=== PATIENT | female | born 1995 | race Asian ===

== ENCOUNTER → 2019-06-30 09:56 | Outpatient (CLI) | payer OTHER, SELFPAY ==
[2019-06-30 10:55] LABS: Hematocrit 43.9 % (36-46); Hemoglobin 14.9 g/dL (12.0-16.0); Mean Corpuscular Hemoglobin 30.3 PG (26-34); Mean Corpuscular Volume 89.1 fL (80-100); Platelet Count 217 X10^3/uL (150-400); Red Blood Cell Count 4.92 X10^6/uL (4.0-5.2); Red Cell Distribution Width 13.4 % (11.6-14.8); White Blood Cell Count 6.9 X10^3/uL (4.5-11.0)
[2019-06-30 11:44] LABS: Neutrophils Absolute Manual 5382 /uL (3000-5900); Total Cells Counted 100
[2019-06-30 11:45] LABS: RBC Morphology Normal Morphology
[2019-06-30 11:49] LABS: Alanine Aminotransferase 15 IU/L (<35); Albumin 4.8 g/dL (3.5-5.0); Albumin Globulin Ratio 1.5 (1.0-2.8); Alkaline Phosphatase 72 U/L (38-126); Aspartate Aminotransferase 24 IU/L (14-36); BUN Creatinine Ratio 11.3 (6-22); Bilirubin Total 0.6 mg/dL (0.2-1.3); Blood Urea Nitrogen 9 mg/dL (7-17); Calcium 10.1 mg/dL (8.4-10.2); Carbon Dioxide 27 mmol/L (22-32); Chloride 106 mmol/L (98-107); Estimated Glomerular Filt Rate > 60.0 mL/min (>60); Globulin 3.3 g/dL (1.7-4.1); Glucose 92 mg/dL (70-100); HEMOLYSIS < 15 (0-50); Potassium 4.1 mmol/L (3.4-5.1); Sodium 142 mmol/L (137-145); Total Protein 8.1 g/dL (6.3-8.2)
[2019-06-30 12:09] LABS: Free T3, Triiodothyronine Free 4.15 pg/mL (2.77-5.27); Free T4, Direct Thyroxine 1.31 ng/dL (0.78-2.19)
[2019-06-30 12:22] LABS: Thyroid Stimulating Hormone 1.18 uIU/mL (0.47-4.68)
== END ==
PROVIDERS: PCP Nurse Practitioner; Visit Provider Nurse Practitioner
DX: F41.8 Other specified anxiety disorders (principal); Z00.00 Encounter for general adult medical examination without abnormal findings
CPT/HCPCS: 36415; 80053; 84439; 84443; 84481; 85025

== ENCOUNTER → 2020-11-27 08:29 | Outpatient (CLI) | payer OTHER, SELFPAY ==
[2020-11-27 09:58] LABS: Add Manual Diff / Slide Review NO; Basophils Absolute Auto 100 /uL (0-100); Basophils Percent Auto 0.8 % (0-2); Eosinophils Absolute Auto 100 /uL (0-450); Eosinophils Percent Auto 0.9 % (2-4); Hematocrit 43.6 % (36-46); Hemoglobin 14.7 g/dL (12.0-16.0); Lymphocytes Absolute Auto 2200 /uL (1100-4500); Lymphocytes Percent Auto 31.5 % (25-40); Mean Corpuscular HGB Conc 33.8 % (30-36); Mean Corpuscular Hemoglobin 30.3 PG (26-34); Mean Corpuscular Volume 89.5 fL (80-100); Monocytes Absolute Auto 500 /uL (0-900); Monocytes Percent Auto 7.6 % (3-14); Neutrophils Absolute Auto 4100 /uL (1500-7000); Neutrophils Percent Auto 59.2 % (50-75); Platelet Count 199 X10^3/uL (150-400); Red Blood Cell Count 4.87 X10^6/uL (4.0-5.2); Red Cell Distribution Width 13.6 % (11.6-14.8)
[2020-11-27 10:16] LABS: Alanine Aminotransferase 14 IU/L (<35); Albumin 4.3 g/dL (3.5-5.0); Albumin Globulin Ratio 1.3 (1.0-2.8); Alkaline Phosphatase 63 U/L (38-126); Aspartate Aminotransferase 24 IU/L (14-36); BUN Creatinine Ratio 13.6 (6-22); Bilirubin Total 0.8 mg/dL (0.2-1.3); Blood Urea Nitrogen 11 mg/dL (7-17); Calcium 10.1 mg/dL (8.4-10.2); Carbon Dioxide 24 mmol/L (22-32); Chloride 104 mmol/L (98-107); Estimated Glomerular Filt Rate > 60.0 mL/min (>60); Globulin 3.3 g/dL (1.7-4.1); Glucose 85 mg/dL (70-100); HEMOLYSIS < 15 (0-50); Potassium 4.3 mmol/L (3.4-5.1); Sodium 137 mmol/L (137-145); Total Protein 7.6 g/dL (6.3-8.2)
[2020-11-28 03:53] LABS: Free T3, Triiodothyronine Free 4.73 pg/mL (2.77-5.27); Free T4, Direct Thyroxine 1.59 ng/dL (0.78-2.19)
[2020-11-28 04:06] LABS: Thyroid Stimulating Hormone 1.47 uIU/mL (0.47-4.68)
== END ==
PROVIDERS: PCP Nurse Practitioner; Referring Provider Nurse Practitioner; Visit Provider Nurse Practitioner
DX: Z00.00 Encounter for general adult medical examination without abnormal findings (principal); F41.8 Other specified anxiety disorders; G47.00 Insomnia, unspecified
CPT/HCPCS: 36415; 80053; 84439; 84443; 84481; 85025

== ENCOUNTER 2021-11-17 12:34 | Emergency (ER) | payer OTHER, SELFPAY ==
[2021-11-17 12:57] VITALS: BP 131/70; PULSE 70; RESP 16; TEMP 36.6; O2SAT 99; BMI 20.3
--- NOTE | 2021-11-17 14:14 | PC.NURSE ---
Pt called from waiting area without answer.
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
== END 2021-11-17 15:30 | disposition home or self-care (01) ==
PROVIDERS: Emergency Provider Nurse Practitioner Critical Care Medicine
DX: S29.012A Strain of muscle and tendon of back wall of thorax, initial encounter (principal); M62.830 Muscle spasm of back; M54.50 Low back pain, unspecified; V49.50XA Passenger injured in collision with unspecified motor vehicles in traffic accident, initial encounter
CPT/HCPCS: 99281

== ENCOUNTER → 2022-04-20 09:40 | Outpatient (CLI) | payer OTHER, MEDICAID, SELFPAY ==
[2022-04-20 10:28] LABS: Hematocrit 42.1 % (36-46); Mean Corpuscular HGB Conc 33.3 % (30-36); Mean Corpuscular Hemoglobin 29.9 PG (26-34); Mean Corpuscular Volume 89.8 fL (80-100); Platelet Count 211 X10^3/uL (150-400); Red Blood Cell Count 4.69 X10^6/uL (4.0-5.2); White Blood Cell Count 6.7 X10^3/uL (4.5-11.0)
[2022-04-20 11:00] LABS: Alanine Aminotransferase 14 IU/L (<35); Albumin 4.2 g/dL (3.5-5.0); Albumin Globulin Ratio 1.2 (1.0-2.8); Alkaline Phosphatase 61 U/L (38-126); Aspartate Aminotransferase 26 IU/L (14-36); BUN Creatinine Ratio 12.5 (6-22); Bilirubin Total 0.6 mg/dL (0.2-1.3); Blood Urea Nitrogen 10 mg/dL (7-17); Calcium 9.1 mg/dL (8.4-10.2); Carbon Dioxide 27 mmol/L (22-32); Chloride 104 mmol/L (98-107); Estimated Glomerular Filt Rate > 60 mL/min (>60); Globulin 3.6 g/dL (1.7-4.1); Glucose 91 mg/dL (70-100); HEMOLYSIS < 15 (0-50); Potassium 3.9 mmol/L (3.4-5.1); Sodium 140 mmol/L (137-145); Total Protein 7.8 g/dL (6.3-8.2)
[2022-04-20 11:18] LABS: Free T3, Triiodothyronine Free 4.13 pg/mL (2.77-5.27); Free T4, Direct Thyroxine 1.19 ng/dL (0.78-2.19)
== END ==
PROVIDERS: Referring Provider Nurse Practitioner; Visit Provider Nurse Practitioner
DX: Z00.00 Encounter for general adult medical examination without abnormal findings (principal)
CPT/HCPCS: 36415; 80053; 84439; 84443; 84481; 85027

== ENCOUNTER → 2022-09-22 15:22 | Outpatient (CLI) | payer OTHER, SELFPAY ==
[2022-09-22 16:51] LABS: Add Manual Diff / Slide Review NO; Basophils Absolute Auto 0 /uL (0-100); Basophils Percent Auto 0.5 % (0-2); Eosinophils Absolute Auto 0 /uL (0-450); Eosinophils Percent Auto 0.5 % (2-4); Hematocrit 40.5 % (36-46); Hemoglobin 13.8 g/dL (12.0-16.0); Lymphocytes Absolute Auto 1800 /uL (1100-4500); Lymphocytes Percent Auto 25.2 % (25-40); Mean Corpuscular Hemoglobin 30.2 PG (26-34); Mean Corpuscular Volume 88.7 fL (80-100); Monocytes Absolute Auto 500 /uL (0-900); Monocytes Percent Auto 6.3 % (3-14); Neutrophils Absolute Auto 4800 /uL (1500-7000); Neutrophils Percent Auto 67.5 % (50-75); Platelet Count 206 X10^3/uL (150-400); Red Blood Cell Count 4.56 X10^6/uL (4.0-5.2); Red Cell Distribution Width 13.4 % (11.6-14.8); White Blood Cell Count 7.2 X10^3/uL (4.5-11.0)
[2022-09-22 17:29] LABS: Alanine Aminotransferase 18 IU/L (<35); Albumin 4.1 g/dL (3.5-5.0); Albumin Globulin Ratio 1.2 (1.0-2.8); Alkaline Phosphatase 66 U/L (38-126); Aspartate Aminotransferase 26 IU/L (14-36); BUN Creatinine Ratio 13.2 (6-22); Bilirubin Total 0.5 mg/dL (0.2-1.3); Blood Urea Nitrogen 9 mg/dL (7-17); Calcium 8.9 mg/dL (8.4-10.2); Carbon Dioxide 24 mmol/L (22-32); Chloride 103 mmol/L (98-107); Cholesterol 185 mg/dL (140-199); Estimated Glomerular Filt Rate > 60 mL/min (>60); Globulin 3.5 g/dL (1.7-4.1); Glucose 84 mg/dL (70-100); HDL Cholesterol 84 mg/dL (40-60); HEMOLYSIS < 15 (0-50); LDL Cholesterol Calculated 88 mg/dL (<100); Potassium 3.7 mmol/L (3.4-5.1); Sodium 136 mmol/L (137-145); Total Protein 7.6 g/dL (6.3-8.2); Triglycerides 64 mg/dL (35-150)
[2022-09-22 17:46] LABS: Free T3, Triiodothyronine Free 4.28 pg/mL (2.77-5.27); Free T4, Direct Thyroxine 1.24 ng/dL (0.78-2.19)
[2022-09-22 18:00] LABS: Thyroid Stimulating Hormone 0.672 uIU/mL (0.47-4.68)
[2022-09-24 17:08] LABS: HIV 1 & 2 Ab/Ag 4th Gen Combo NEGATIVE (NEGATIVE); Hep C Virus Ab w/Reflex Quant NEGATIVE s/c (NEGATIVE)
== END ==
PROVIDERS: PCP Nurse Practitioner; Referring Provider Nurse Practitioner; Visit Provider Nurse Practitioner
DX: Z00.00 Encounter for general adult medical examination without abnormal findings; Z11.4 Encounter for screening for human immunodeficiency virus [HIV]; Z11.59 Encounter for screening for other viral diseases; Z11.8 Encounter for screening for other infectious and parasitic diseases
CPT/HCPCS: 36415; 80053; 80061; 84439; 84443; 84481; 85025; 86803; 87389

== ENCOUNTER → 2022-09-23 10:05 | Outpatient (CLI) | payer OTHER, SELFPAY ==
[2022-09-23 13:45] LABS: Urine N gonorrhoeae NOT DETECTED
[2022-09-23 13:51] LABS: Urine Chlamydia NOT DETECTED
== END ==
PROVIDERS: PCP Nurse Practitioner; Referring Provider Nurse Practitioner; Visit Provider Nurse Practitioner
DX: Z11.4 Encounter for screening for human immunodeficiency virus [HIV] (principal); Z11.59 Encounter for screening for other viral diseases; Z11.8 Encounter for screening for other infectious and parasitic diseases
CPT/HCPCS: 36415; 87491; 87591

== ENCOUNTER → 2023-04-15 14:45 | Outpatient (CLI) | payer OTHER, SELFPAY | PROVIDERS: PCP Nurse Practitioner; Referring Provider Family Medicine; Visit Provider Family Medicine | DX: Z23 Encounter for immunization (principal) | CPT/HCPCS: 90471; 90686 ==

== ENCOUNTER → 2023-10-12 07:04 | Outpatient (CLI) | payer OTHER, SELFPAY ==
[2023-10-12 07:40] LABS: Add Manual Diff / Slide Review NO; Basophils Absolute Auto 0 /uL (0-100); Basophils Percent Auto 0.7 % (0-2); Eosinophils Absolute Auto 100 /uL (0-450); Eosinophils Percent Auto 1.5 % (2-4); Hematocrit 39.6 % (36-46); Hemoglobin 13.3 g/dL (12.0-16.0); Lymphocytes Absolute Auto 1900 /uL (1100-4500); Lymphocytes Percent Auto 31.1 % (25-40); Mean Corpuscular HGB Conc 33.6 % (30-36); Mean Corpuscular Hemoglobin 29.9 PG (26-34); Monocytes Absolute Auto 500 /uL (0-900); Neutrophils Absolute Auto 3700 /uL (1500-7000); Neutrophils Percent Auto 58.7 % (50-75); Platelet Count 190 X10^3/uL (150-400); Red Blood Cell Count 4.44 X10^6/uL (4.0-5.2); Red Cell Distribution Width 12.9 % (11.6-14.8); White Blood Cell Count 6.3 X10^3/uL (4.5-11.0)
[2023-10-12 08:14] LABS: Alanine Aminotransferase 18 IU/L (<35); Albumin 3.8 g/dL (3.5-5.0); Albumin Globulin Ratio 1.1 (1.0-2.8); Alkaline Phosphatase 63 U/L (38-126); Aspartate Aminotransferase 25 IU/L (14-36); BUN Creatinine Ratio 16.2 (6-22); Bilirubin Total 0.6 mg/dL (0.2-1.3); Blood Urea Nitrogen 11 mg/dL (7-17); Calcium 9.3 mg/dL (8.4-10.2); Carbon Dioxide 25 mmol/L (22-32); Chloride 107 mmol/L (98-107); Estimated Glomerular Filt Rate > 60 mL/min (>60); Globulin 3.4 g/dL (1.7-4.1); Glucose 85 mg/dL (70-100); HEMOLYSIS < 15 (0-50); Potassium 4.1 mmol/L (3.4-5.1); Sodium 134 mmol/L (137-145); Total Protein 7.2 g/dL (6.3-8.2)
[2023-10-12 09:14] LABS: Hepatitis B Surface Antigen NEGATIVE s/c (NEGATIVE)
[2023-10-12 09:27] LABS: HIV 1 & 2 Ab/Ag 4th Gen Combo NEGATIVE (NEGATIVE); Hep C Virus Ab w/Reflex Quant NEGATIVE s/c (NEGATIVE)
[2023-10-12 11:28] LABS: Creatinine Urine Random 47.1 mg/dL
[2023-10-12 11:31] LABS: Microalbumin Urine Random < 0.6 mg/dL (0-1.6)
[2023-10-12 12:36] LABS: Urine N gonorrhoeae NOT DETECTED
[2023-10-12 13:02] LABS: Urine Chlamydia NOT DETECTED
[2023-10-13 03:10] LABS: HSV 2 IGG AB < 0.91 index (0.00-0.90)
[2023-10-13 09:21] LABS: RPR Screen Non Reactive (Non Reactive)
[2023-10-15 05:22] LABS: Free T4, Direct Thyroxine 1.43 ng/dL (0.78-2.19)
== END ==
LOC: LAB 07:05
PROVIDERS: PCP Nurse Practitioner; Referring Provider Nurse Practitioner; Visit Provider Nurse Practitioner
DX: Z00.00 Encounter for general adult medical examination without abnormal findings (principal); Z11.3 Encounter for screening for infections with a predominantly sexual mode of transmission
CPT/HCPCS: 36415; 80053; 82043; 82570; 84439; 84443; 84481; 85025; 86592; 86695; 86696; 86803; 87340; 87389; 87491; 87591

== ENCOUNTER 2024-11-25 13:37 | Emergency (ER) | payer OTHER, SELFPAY ==
[2024-11-25 14:08] VITALS: BP 125/60; PULSE 87; RESP 18; TEMP 37.1; O2SAT 97; BMI 21.2
--- NOTE | 2024-11-25 14:13 | DI.RAD.S_ITS ---
PROCEDURE: XR TOE RT MIN 2V INDICATIONS: toe pain after trip TECHNIQUE: AP view of the foot and two views of the 4th toe acquired. COMPARISON: None. FINDINGS: Bones: Mildly displaced fracture is seen at the midshaft of the 4th proximal phalanx with mild lateral angulation. No additional fracture is seen. Soft tissues: No suspicious soft tissue densities. IMPRESSION: Mildly angulated fracture of the 4th proximal phalangeal shaft. Approved by: Jose Smith M.D. on 11/25/2024 at 13:53
--- NOTE | 2024-11-25 15:41 | ED_ITS ---
HPI - Extremity Injury (Lower) <Breann Carter PA-C - Last Filed: 11/25/24 17:58> General Chief Complaint: Extremity Injury, Lower Stated Complaint: R Foot Toe Injury Time Seen by Provider: 11/25/24 15:35 Source: patient Mode of arrival: Wheelchair History of Present Illness HPI Narrative: Ms. De La Rosa is a very pleasant 29-year-old female who presents to the emergency department for right 4th toe pain and deformity after an injury that occurred prior to arrival. Patient reports she got up quickly and tripped/stubbed her foot on an Ottoman causing her right 4th toe to point laterally. Her pain is localized to the right 4th toe, no midfoot pain, no numbness tingling weakness open wounds or deformities. No nail bed involvement. No medications prior to arrival, she is icing the toe. She does have to ride a bike daily, she would like to reduce costs as much as possible here in the ER. Related Data Previous Rx's Medication Instructions Recorded fluoxetine 10 mg capsule 10 mg PO DAILY #90 caps 05/24/24 fluoxetine 20 mg capsule 20 mg PO DAILY #90 caps 05/24/24 Allergies Allergy/AdvReac Type Severity Reaction Status Date / Time latex Allergy Rash Verified 11/25/24 14:08 Review of Systems <Breann Carter PA-C - Last Filed: 11/25/24 17:58> Review of Systems ROS Unobtainable: All systems reviewed & are unremarkable except as noted in HPI and below Patient History <Breann Carter PA-C - Last Filed: 11/25/24 17:58> Medical History PCR DNA positive for HSV1 Well woman exam with routine gynecological exam Other retirement (current) drug therapy Scoliosis (~2009) Depression with anxiety Family History Father Hypertension Mother Mental health problem Sister Mental health problem Sister Mental health problem Social History Smoking Status: Never smoker Smoking Status: Never smoker Exam <Breann Carter PA-C - Last Filed: 11/25/24 17:58> Narrative Exam Narrative: GENERAL: 29 year old patient appears stated age. Well-developed patient, in no acute distress. HEAD: Atraumatic. Normocephalic. CARDIOVASCULAR: Regular rate RESPIRATORY: ?Nonlabored respirations. ?Speaking in clear, full sentences. ? EXTREMITIES: Right 4th toe with lateral deformity at the proximal phalanx. No open wounds, no discoloration, no nail bed involvement. Tenderness to palpation of the proximal phalanx, no tenderness to palpation of the distal phalanx. There is still brisk cap refill in the distal phalanx and sensation intact to light touch. Remainder of foot is nontender and warm and well-perfused. NEURO: AOx3. ?Clear speech. ?Moves all 4 extremities appropriately. SKIN: No rash or erythema of visible areas Initial Vital Signs Initial Vital Signs: Vital Signs Temperature 98.8 F 11/25/24 14:08 Pulse Rate 87 11/25/24 14:08 Respiratory Rate 18 11/25/24 14:08 Blood Pressure 125/60 11/25/24 14:08 Pulse Oximetry 97 11/25/24 14:08 Oxygen Delivery Method Room Air 11/25/24 14:08 <Latrell Arechiga MD - Last Filed: 11/25/24 20:40> Initial Vital Signs Initial Vital Signs: Vital Signs Temperature 98.8 F 11/25/24 14:08 Pulse Rate 87 11/25/24 14:08 Respiratory Rate 18 11/25/24 14:08 Blood Pressure 125/60 11/25/24 14:08 Pulse Oximetry 97 11/25/24 14:08 Oxygen Delivery Method Room Air 11/25/24 14:08 Course <Breann Carter PA-C - Last Filed: 11/25/24 17:58> Orders Ordered: ED Orders 11/25/24 14:13 XR toe RT min 2V Stat 11/25/24 16:01 XR toe RT min 2V Stat Vital Signs Vital signs: Vital Signs - 8 hr 11/25/24 14:08 11/25/24 17:29 Temperature 98.8 F Pulse Rate 87 74 Respiratory Rate 18 16 Blood Pressure 125/60 116/78 Pulse Oximetry 97 99 Oxygen Delivery Method Room Air Room Air <Latrell Arechiga MD - Last Filed: 11/25/24 20:40> Orders Ordered: ED Orders 11/25/24 14:13 XR toe RT min 2V Stat 11/25/24 16:01 XR toe RT min 2V Stat Vital Signs Vital signs: Vital Signs - 8 hr 11/25/24 14:08 11/25/24 17:29 Temperature 98.8 F Pulse Rate 87 74 Respiratory Rate 18 16 Blood Pressure 125/60 116/78 Pulse Oximetry 97 99 Oxygen Delivery Method Room Air Room Air MDM - Extremity Injury (Lower) <Breann Carter PA-C - Last Filed: 11/25/24 17:58> Medical Records Attestation: I reviewed the patient's medical records. Imaging Data Right Fourth Toe Fracture: My Impression: On my independent interpretation there is a displaced fracture of the 4th proximal phalanx fracture. Radiologist's Impression: PROCEDURE: XR TOE RT MIN 2V INDICATIONS: toe pain after trip TECHNIQUE: AP view of the foot and two views of the 4th toe acquired. COMPARISON: None. FINDINGS: Bones: Mildly displaced fracture is seen at the midshaft of the 4th proximal phalanx with mild lateral angulation. No additional fracture is seen. Soft tissues: No suspicious soft tissue densities. IMPRESSION: Mildly angulated fracture of the 4th proximal phalangeal shaft. Approved by: Jose Smith M.D. on 11/25/2024 at 13:53 Right Fourth Toe Fracture (post-reduction): Radiologist's Impression: PROCEDURE: XR TOE RT MIN 2V INDICATIONS: 4th toe fx reduction TECHNIQUE: AP view of the foot and oblique view of the 4th toe. COMPARISON: [facility], XR TOE RT MIN 2V, 11/25/2024, 14:23. FINDINGS: Bones: Status post reduction of the previously seen 4th proximal phalangeal shaft fracture with improved alignment. Soft tissues: No suspicious soft tissue densities. IMPRESSION: Status post reduction of the previously seen 4th proximal phalangeal shaft fracture with improved alignment. Approved by: Jose Smith M.D. on 11/25/2024 at 15:59 [facility] Narrative Medical decision making narrative: 29-year-old female who presents to the emergency department for right 4th toe pain and deformity after an injury that occurred prior to arrival. Differential diagnosis includes but is not limited to right 4th toe fracture, sprain, strain, dislocation, displaced fracture, etc. On exam the patient is in no acute distress, nontoxic-appearing, all vital signs within normal limits. She does have an obvious deformity of the right 4th toe, it is closed. X-ray obtained revealing mildly angulated fracture of the 4th proximal phalangeal shaft. After shared decision-making with the patient, she declines digital block and therefore the fracture was reduced and sarika-taped to the 3rd toe, she tolerated the procedure very well. Toe was neurovascularly intact after the reduction. We will obtain repeat x-rays, we will treat with orthopedic shoe. Recommended rice, PCP follow up, ibuprofen/acetaminophen, discussed ED return precautions. Repeat x-rays with improved alignment. She verbalized understanding of all information, ambulatory with postop shoe. She is stable for discharge home. Discharge Plan Departure Patient Disposition: Home Clinical Impression: Closed fracture of fourth toe of right foot Qualifiers: Encounter type: initial encounter Qualified Code(s): S92.501A - Displaced unspecified fracture of right lesser toe(s), initial encounter for closed fracture Instructions: DI for Toe Fracture Activity Restrictions/Additional Instructions: Dear Rj, Thank you for coming to the emergency department. Today you were evaluated for a deformity and injury to right 4th toe, x-ray showed that you did break the 4th toe, the toe was sarika-taped to the 3rd toe for support. Please use RICE therapy for your pain in addition to ibuprofen/acetaminophen. Rest the painful area. Ice the area of pain/swelling for at least 15 minutes, 4x a day. Compress the area of swelling using a brace, wrap, or splint if applied. Elevate the painful or swollen extremity by supporting it above the level of the heart with pillows when sitting or laying. Please continue wearing the orthopedic shoe for about 4 weeks and follow up with the primary care doctor. Please follow up with your primary care doctor within the next 2-3 days for ER follow-up. (If you do not have a PCP you can call [phone]. ?to schedule an appointment with an [facility] Primary Care Provider) IF YOU DEVELOP ANY NEW OR WORSENING SYMPTOMS, RETURN TO THE ER! Please read the attached instructions, they highlight more specific treatments and interventions for you at home. Thank you for letting me participate in your care, Breann Carter PA-C Prescriptions: No Action fluoxetine 10 mg capsule 10 mg PO DAILY Qty: 90 0RF Rx Instructions: Take 1 cap daily in addition to the 20mg cap (30mg/24 hours) NO FURTHER REFILLS UNTIL 08/14/24 APPT fluoxetine 20 mg capsule 20 mg PO DAILY Qty: 90 0RF Rx Instructions: Take 1 cap daily in addition to 10mg (total 30mg daily) NO FURTHER REFILLS UNTIL 08/14/24 APPT Referrals: Karen Sharp ARNP [Primary Care Provider] - Stand Alone Forms: Patient Portal/API/Survey, Work Release Note ED Sign-out <Latrell Arechiga MD - Last Filed: 11/25/24 20:40> [facility] ED Attending Cosignature Attestation: I was immediately available in the department for consultation. This documentation has been reviewed and I agree with assessment and plan. Supervised by Latrell Arechiga MD
--- NOTE | 2024-11-25 16:01 | DI.RAD.S_ITS ---
PROCEDURE: XR TOE RT MIN 2V INDICATIONS: 4th toe fx reduction TECHNIQUE: AP view of the foot and oblique view of the 4th toe. COMPARISON: [facility], , XR TOE RT MIN 2V, 11/25/2024, 14:23. FINDINGS: Bones: Status post reduction of the previously seen 4th proximal phalangeal shaft fracture with improved alignment. Soft tissues: No suspicious soft tissue densities. IMPRESSION: Status post reduction of the previously seen 4th proximal phalangeal shaft fracture with improved alignment. Approved by: Jose Smith M.D. on 11/25/2024 at 15:59
[2024-11-25 17:29] VITALS: BP 116/78; PULSE 74; RESP 16; O2SAT 99
== END 2024-11-25 17:29 | disposition home or self-care (01) ==
PROVIDERS: Emergency Provider Physician Assistant; PCP Nurse Practitioner
DX: S92.501A Displaced unspecified fracture of right lesser toe(s), initial encounter for closed fracture (principal); X58.XXXA Exposure to other specified factors, initial encounter
CPT/HCPCS: 73660; 99283